=== PATIENT | male | born 1995 | race Two or more races ===

== ENCOUNTER 2025-04-24 10:33 | Inpatient (IN) | payer MEDICAID, SELFPAY ==
[2025-04-24 10:34] VITALS: BMI 31.4
[2025-04-24 10:47] VITALS: BP 132/88; PULSE 74; RESP 17; TEMP 36.6; O2SAT 98
--- NOTE | 2025-04-24 12:36 | PD.EDADULT ---
ED General RME/HPI General Chief complaint: General Adult/Misc Complain Stated complaint: CHRONIC RHABDO CAUSING SEVERE MUSC ACHES Time Seen by Provider: 04/24/25 12:32 Arrival date/time: 04/24/25 10:33 transferease Deficiency type II, followed by [facility] in [place], [place]. [facility]. IV hydration d10. Limitations: no limitations RME / HPI RME / HPI narrative: 30-year-old male who is here today with myalgias and joint pain that started this morning. He states he has a history of recurrent rhabdomyolysis and is followed by sports nutritionist and [place], [place]. His specialist is with [facility]. He has CPTII defeciency. 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 He denies any fevers. He has no nausea or vomiting. Has no dark-colored urine although he states he has decreased urine output. He has no lower leg edema. He has no other acute complaints. Related Data Home Medications ?Medication ?Instructions ?Recorded ?Confirmed No Known Home Medications 04/24/25 04/24/25 Allergies Allergy/AdvReac Type Severity Reaction Status Date / Time No Known Allergies Allergy Verified 04/24/25 10:38 Review of Systems Review of Systems Systems Reviewed: All systems reviewed, normal except as documented ED Exam General Limitations: Present no limitations General appearance: Present alert and in no apparent distress Head Head exam: Present atraumatic Eye Eye exam: Present normal appearance, PERRL and EOMI ENT ENT exam: Present normal exam, normal oropharynx and mucous membranes moist Neck Neck exam: Present normal inspection, full ROM and trachea midline Chest Chest inspection: Present normal inspection and symmetric chest wall rise Respiratory Respiratory exam: Present normal lung sounds bilaterally Cardiovascular Cardiovascular exam: Present regular rate, normal rhythm and normal heart sounds Abdominal Exam Abdominal exam: Present soft; Absent distention, tenderness or guarding Extremities Exam Extremities exam: Present normal inspection and full ROM; Absent tenderness or joint swelling Back Exam Back exam: Present normal inspection and full ROM Neurological Exam Neurological exam: Present alert and oriented X3 Psychiatric Psychiatric exam: Present normal affect and normal mood Skin Skin exam: Present warm, dry, intact and normal color Course Quality Measures none Orders Category Date Time Status COVID-19 Screening Questionnaire NOW Care 04/24/25 13:55 Active COVID-19 Screening Questionnaire NOW Care 04/24/25 14:23 Active Decision to Admit X1 Care 04/24/25 13:55 Completed IV [Insert IV] NOW Care 04/24/25 14:17 Active Diet Regular Diet 04/24/25 Dinner Active CBC Stat Lab 04/24/25 12:50 Completed CK [Creatine Kinase] Stat Lab 04/24/25 12:50 Completed CMP [Comprehensive Metabolic Panel] Stat Lab 04/24/25 12:50 Completed CRP [C-Reactive Protein] Stat Lab 04/24/25 12:50 Completed Lactic Acid [Lactate (Lactic Acid)] Stat Lab 04/24/25 12:50 Completed Lipase Stat Lab 04/24/25 12:50 Completed Sed Rate (ESR) Stat Lab 04/24/25 12:50 Completed UA, C/S IF [Urinalysis, C/S if Indicated] Stat Lab 04/24/25 13:15 Completed HYDROmorphone INJ [Dilaudid Inj] Med 04/24/25 13:48 Discontinued 1 mg IVP X1 ONE Morphine Inj Med 04/24/25 12:38 Discontinued 2 mg IVP X1 ONE Morphine Inj Med 04/24/25 12:42 Discontinued 4 mg IM X1 ONE Ringers Lactated 1000 ml [Lactated Ringers] 1,000 ml Med 04/24/25 12:50 Discontinued IV 999 mls/hr Vital Signs Vital signs: Vital Signs Temperature 97.8 F 04/24/25 10:47 Pulse Rate 74 04/24/25 10:47 Respiratory Rate 17 04/24/25 10:47 Blood Pressure 132/88 H 04/24/25 10:47 Pulse Oximetry (%) 98 04/24/25 10:47 Oxygen Delivery Method Room Air 04/24/25 10:47 Discharge Plan Plan Patient Disposition: Other Care w/in Hosp ([facility]TY) Problem List Clinical Impression: Rhabdomyolysis MDM Narrative MDM hospital course: 30-year-old male who is here today with myalgias and joint pain that started this morning. He states he has a history of recurrent rhabdomyolysis and is followed by sports nutritionist and [place], [place]. His specialist is with [facility]. He has CPTII defeciency. 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 He denies any fevers. He has no nausea or vomiting. Has no dark-colored urine although he states he has decreased urine output. He has no lower leg edema. He has no other acute complaints. On exam, patient is nontoxic-appearing. Vital signs are stable. He has no joint erythema or edema. Workup reveals no leukocytosis or anemia. His creatinine is 0.9, bicarb is 28, potassium 4.1, sodium is 141. His AST is elevated at 61 and ALT is elevated 81. Alk phos is unremarkable. His CRP is unremarkable. His CK is 1289. Clinical Information Provided by patient Medical Records Reviewed None Meds/Rx Considered, not Ordered None Labs/Rad/Tests considered, not Ordered None Chronic Illness/Social Conditions which may negatively complicate care or outcome(s)-explain: other (CPTII defeciency) EKG EKG not done Lab Interpretation Labs: interpreted by ny Lab(s) interpretation(s): CK is elevated indicating rhabdomyolysis Imaging Imaging interpretation: none Medication Administration(s) Medication Administration History Hydrocodone Bitart/Acetaminophen (Hydrocodone/Apap 10/325 Tab) 1 tab PO Q6HR PRN PRN Reason: PAIN SCALE 7-10 (Severe Stop: 04/29/25 20:15 Hydromorphone HCl (Hydromorphone Inj 2 Mg/Ml Vial) 1 mg IVP Q4H PRN; Protocol PRN Reason: breakthrough pain or pain 7-10 Stop: 04/29/25 16:38 Last Admin: 04/24/25 21:29 Dose: 1 mg Documented By: Admin: 04/24/25 17:28 Dose: 1 mg Documented By: COLLEEN Lactated Ringer's (Lactated Ringers) 1,000 mls @ 150 mls/hr IV .Q6H40M DAY Stop: 05/24/25 16:39 Last Admin: 04/24/25 18:45 Dose: 150 mls/hr Documented By: KD Discontinued Medications Hydromorphone HCl (Hydromorphone Inj 2 Mg/Ml Vial) 1 mg IVP X1 ONE Stop: 04/24/25 13:49 Last Admin: 04/24/25 14:22 Dose: 1 mg Documented By: JUAN Lactated Ringer's (Lactated Ringers) 1,000 mls @ 999 mls/hr IV .Q1H1M ONE Stop: 04/24/25 13:50 Last Infusion: 04/24/25 15:40 Dose: Infused Documented By: Admin: 04/24/25 14:23 Dose: 999 mls/hr Documented By: JUAN Morphine Sulfate (Morphine Sulf Inj 10 Mg/Ml Vial) 2 mg IVP X1 ONE Stop: 04/24/25 12:39 Last Admin: 04/24/25 14:23 Dose: Not Given Documented By: COLLEEN Non-Admin Reason: Cancelled by Provider Morphine Sulfate (Morphine Sulf Inj 10 Mg/Ml Vial) 4 mg IM X1 ONE Stop: 04/24/25 12:43 Last Admin: 04/24/25 13:16 Dose: 4 mg Documented By: VALE See above Diagnosis Differential diagnosis: Rhabdomyolysis, kidney failure, myalgias Dispositon Disposition: Admit
[2025-04-24 13:00] LABS: Lactate (Lactic Acid) 0.7 mMol/L (0.4-2.0)
[2025-04-24 13:04] LABS: Basophils # (Auto) 0.0 Thou/mm3 (0.0-0.2); Basophils % (Auto) 0 % (0-2.5); Eosinophils # (Auto) 0.2 Thou/mm3 (0.0-0.5); Eosinophils % (Auto) 2 % (0-10); Hematocrit 41.1 % (41.0-53.0); Hemoglobin 14.8 g/dL (13.5-16.0); Immature Granulocytes Auto 0.02 Thou/mm3 (0.00-0.00); Lymphocytes # (Auto) 2.0 Thou/mm3 (1.0-4.8); Lymphocytes % (Auto) 19 % (10-50); Mean Corpuscular HGB Conc 36.0 g/dl (31.0-37.0); Mean Corpuscular Hemoglobin 30.9 pg (25.0-35.0); Mean Corpuscular Volume 86 fL (80-100); Monocytes # (Auto) 0.6 Thou/mm3 (0.0-0.8); Monocytes % (Auto) 6 % (0-12); Neutrophils # (Auto) 7.7 Thou/mm3 (1.8-7.7); Neutrophils % (Auto) 73 % (37-80); Nucleated Red Blood Cell # 0.00 Thou/mm3 (0.00-0.00); Nucleated Red Blood Cell % 0 /100 WBC (0); Platelet Count 288 Thou/mm3 (140-440); RDW Standard Deviation 40.9 fL (35.1-43.9); Red Blood Count 4.79 Miln/mm3 (4.50-5.90); White Blood Count 10.6 Thou/mm3 (3.8-10.6)
[2025-04-24 13:13] LABS: Sed Rate (ESR) 10 mm/hr (0-15)
[2025-04-24] MEDS: MORPHINE SULF INJ 10 MG/ML VIAL 4 MG IM (13:16)
[2025-04-24 13:18] LABS: Alanine Aminotransferase 81 U/L (10-49); Albumin, Serum 4.8 gm/dL (3.5-5.0); Albumin/Globulin Ratio 1.8 (1.2-2.2); Alkaline Phosphatase 97 U/L (46-116); Anion Gap 8 (7-16); Aspartate Amino Transferase 61 U/L (0-34); BUN/Creatinine Ratio 13 Ratio (12-20); Bilirubin,Total 0.9 mg/dL (0.3-1.2); Blood Urea Nitrogen 12 mg/dL (9-23); C-Reactive Protein < 0.5 mg/dL (0.0-0.9); Calcium 9.6 mg/dL (8.3-10.6); Calcium (Corrected) 9.6 mg/dL (8.5-10.1); Carbon Dioxide 28.0 mMol/L (20.0-31.0); Chloride 105 mMol/L (98-107); Creatine Kinase 1289 U/L (34-171); Creatinine (Component) 0.9 mg/dL (0.6-1.3); Estimated Creatinine Clearance 148.6 mL/min (>60); Globulin 2.6 gm/dL (2.3-3.5); Glucose 93 mg/dL (74-106); Lipase 28 U/L (12-53); Osmolality,Calculated 280 (275-295); Potassium 4.1 mMol/L (3.4-5.1); Sodium 141 mMol/L (136-145); Total Protein 7.4 gm/dL (5.7-8.2); eGFR > 60 See Note
[2025-04-24 13:30] LABS: Collection Type, Urine Voided
[2025-04-24 13:32] LABS: Bilirubin,Urine Negative (Negative); Blood,Urine Negative (Negative); Clarity,Urine Clear (Clear/Hazy); Color,Urine Yellow (Lt Yel-Yel); Culture Indicated,Urine Not Indicated; Glucose, Urine Negative (Negative); Ketones,Urine Negative (Negative); Leukocyte Esterase,Urine Negative (Negative); Nitrite,Urine Negative (Negative); PH,Urine 7.5 (5.0-7.0); Protein,Urine Trace (Neg - Trace); RBC,Urine 2 /hpf (0-3); Specific Gravity,Urine 1.026 (1.001-1.035); Squamous Epithelial Cell,Urine < 1 /hpf (0-5); Urobilinogen,Urine Negative mg/dL (0.0-1.0); WBC,Urine 2 /hpf (0-5)
[2025-04-24 14:19] VITALS: BP 142/82; PULSE 63; RESP 16; TEMP 37.1; O2SAT 99
[2025-04-24] MEDS: HYDROmorphone INJ 2 MG/ML VIAL 1 MG IVP ×3 (14:22→21:29)
[2025-04-24] MEDS: RINGERS LACTATED 1000 ML 1,000 ML 999 ML IV (14:23)
--- NOTE | 2025-04-24 15:09 | ESHP_ITS ---
<Statement entered by Adina Brody MD - 04/25/25 15:13> I have reviewed the note and agree with the resident's assessment & plan with exceptions as below. I have personally reviewed labs, imaging, home meds/prior records, examined the patient, formulated and discussed management plan with the IM team. Kendrick is a 30 y/o male with CPTII deficiency comes in for evaluation of leg pain. Patient has history of recurrent rhabdomyolysis due to his genetic condition of CPT 2 deficiency. He reports that he was working and had overexerted himself and had poor oral intake. He decided to come to the ER for further workup. He says his creatinine kinase has been up to 150,000 when he was first diagnosed. Will continue with IV hydration (LR 150 cc/hr) and trend CK for patient as patient's creatinine kinase is around 1500. No evidence of kidney damage however there is some elevation in liver enzymes indicating acute liver injury. Repeat hematology, chemistry and liver enzymes in the AM. Adina Brody, PGY-2 Internal Medicine Documentation for date of: 04/24/25 HPI History of Present Illness History of present illness: Kendrick Moser is a 30yo male with hx of recurrent rhabdomyolysis, CPT2 deficiency who presented to the ED on 04/24 with muscle and joint pain of BLE and lower back beginnig this morning. Symptoms had been developing with working overnight and pt woke up with severe MSK pain in the morning prompting his ED visit. Pt sees a underwater hunter at [facility] for the dietary management of his condition as well as a rigger up at [facility]. Pt has had similar episodes previously which were accompanied with dark urine at times. Denies any fevers, nausea, vomiting, or dark-colored urine, or leg edema. Admits to decreased urine output. ED Course: Vital signs were stable at presentation. In ED Pt was given bolus 1L LR. IV and IM morphine. IVP Dilaudid 1mg for pain control. Workup revealed no leukocytosis or anemia. His creatinine was 0.9, bicarb is 28, potassium 4.1, sodium is 141. His AST was elevated at 61 and ALT elevated 81. Alk phos was unremarkable. His CRP was unremarkable. His CK was 1289. UA was negative for signs of UTI. Allergies: none PMHx: CPT2 deficiency, and recurrent rhabdomyolysis PSHx: Diagnostic biopsy of muscle in Lt thigh. Previous emergent dialysis portal related to unresolving rhabdo. FHx: Father had unidentified tumor in his leg which was removed. Doesn't know about mother. Siblings are healthy. 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 Admits to vaping nicotine. Denies smoking tobacco products, marijuana use, or any other illicit drug use. Monogamous relationship with and has 3 children (one on the way) Reason for admission: Patient is being observed for symptomatic control while receiving IV fluids and pain relief. Exam Vital Signs Temp Pulse Resp BP Pulse Ox O2 Del Method 98.7 F 63 16 142/82 H 99 Room Air 04/24/25 14:19 04/24/25 14:19 04/24/25 14:19 04/24/25 14:19 04/24/25 14:19 04/24/25 14:19 Narrative Exam General: Alert and oriented x3, No apparent distress. Skin: Intact, Warm, no rashes. HEENT: Normocephalic, Atraumatic. Normal neck range of motion, Supple. Trachea midline. Respiratory: Lungs are clear to auscultation, Breath sounds are equal bilaterally with equal chest expansion. Cardiovascular: RRR, normal S1, S2, No murmurs. Distal pulses 2+ Abdomen: Abdomen soft, non-distended, without erythema, or lesions. Normotensive bowel sounds x4. Percussion tympanic. Palpation nontender in all four quadrants. No organomagely. No guarding or rebound present. Musculoskeletal/Extremities: No erythema, swelling, tenderness of any joints. No edema of BLE. DP pulses +2/3 b/l. Full active ROM of all four extremities. Neurologic: Alert, Oriented, No focal deficits. Moving all 4 extremities spontaneously Psych: Thoughts linear and responses appropriate. Results: Labs 04/25/25 04:49 04/25/25 04:49 Labs: Short CBC 04/24/25 Range/Units 12:50 WBC 10.6 (3.8-10.6) Thou/mm3 Hgb 14.8 (13.5-16.0) g/dL Hct 41.1 (41.0-53.0) % Plt Count 288 (140-440) Thou/mm3 BMP 04/24/25 12:50 Sodium 141 Potassium 4.1 Chloride 105 Carbon Dioxide 28.0 BUN 12 Creatinine 0.9 Glucose 93 Calcium 9.6 Cardiac Enzymes 04/24/25 Range/Units 12:50 Total Creatine Kinase 1289 H (34-171) U/L Liver Function 04/24/25 Range/Units 12:50 Total Bilirubin 0.9 (0.3-1.2) mg/dL AST 61 H (0-34) U/L ALT 81 H (10-49) U/L Alkaline Phosphatase 97 (46-116) U/L Albumin 4.8 (3.5-5.0) gm/dL Urine 04/24/25 Range/Units 13:15 Urine Color Yellow (Lt Yel-Yel) Urine Clarity Clear (Clear/Hazy) Urine pH 7.5 H (5.0-7.0) Ur Specific [place] 1.026 (1.001-1.035) Urine Protein Trace (Neg - Trace) Urine Glucose (UA) Negative (Negative) Quality Measures Quality Measures none Medications Home Medications and Allergies Home Medications ?Medication ?Instructions ?Recorded ?Confirmed ?Type No Known Home Medications 04/24/2504/03 History Allergies Allergy/AdvReac Type Severity Reaction Status Date / Time No Known Allergies Allergy Verified 04/24/25 10:38 Visit Medications Discontinued Medications Hydromorphone HCl (Hydromorphone Inj 2 Mg/Ml Vial) 1 mg IVP X1 ONE Stop: 04/24/25 13:49 Last Admin: 04/24/25 14:22 Dose: 1 mg Lactated Ringer's (Lactated Ringers) 1,000 mls @ 999 mls/hr IV .Q1H1M ONE Stop: 04/24/25 13:50 Last Admin: 04/24/25 14:23 Dose: 999 mls/hr Morphine Sulfate (Morphine Sulf Inj 10 Mg/Ml Vial) 2 mg IVP X1 ONE Stop: 04/24/25 12:39 Last Admin: 04/24/25 14:23 Dose: Not Given Morphine Sulfate (Morphine Sulf Inj 10 Mg/Ml Vial) 4 mg IM X1 ONE Stop: 04/24/25 12:43 Last Admin: 04/24/25 13:16 Dose: 4 mg Assessment & Plan Plan Assessment Kendrick Moser is a 30yo male with hx of recurrent rhabdomyolysis, CPT2 deficiency who presented to the ED on 04/24 with muscle and joint pain beginning in AM of same day. #Rhabdomyolysis 2/2 #CPT2 Deficiency Workup reveals no leukocytosis or anemia. His creatinine is 0.9, bicarb is 28, potassium 4.1, sodium is 141. His AST is elevated at 61 and ALT is elevated 81. Alk phos is unremarkable. His CRP is unremarkable. His CK is 1289. UA was negative for signs of UTI. In ED Pt was given bolus 1L LR. IV and IM morphine. IVP Dilaudid 1mg. Plan: LR @ IV 150mL/h Dilaudid IV 1mg Q4h PRN CK AM draw #Elevated transaminases AST ALT 61 and 81 respectively Could be related to rhabdo and perfusion Plan: ? Trend CMP ? Avoid hepatotoxic agents Health Maintenance: Disposition: Observation Diet: Routine PPx DVT: PPx GI: Code status: full This case was discussed with my attending physician, Dr. Henriquez, and senior resident Dr Brody. Beverly Snider DO PGY I Attending Provider Attestation/Addendum After examination of the patient and review of the clinical data I feel that this patient needs admission to the hospital for further treatment/evaluation. I have discussed and was present for the essential components of the history, physical examination, diagnosis, and treatment plan with the resident. I agree with the patient's care as documented by the resident and amended herein by me. Patrick Henriquez DO. Although this document has been carefully reviewed, there may still be some phonetic and other typographical errors. These errors are purely grammatical due to imperfections in the software program and should not be construed in any way to compromise the substance of the patient's medical care during this visit. Patient seen and evaluated in the ED the patient is a 30-year-old male with significant past medical history of Carnitine palmitoyltransferase II deficiency and frequent episodes of rhabdomyolysis secondary to CPK 2 deficiency, presented to the ED for myalgias and joint pain as well as reduced urine output. Patient subsequently admitted for rhabdomyolysis. In the ED, vital signs stable, patient afebrile, labs largely unremarkable with exception of a CK level of 1289. Patient was given 1 L of LR in the ED. Patient subsequently admitted to observation under MedSurg for very mild rhabdomyolysis. Patient was started on fluids, initially LR however transition to D5 NS at a rate of 150 mL/h considering the case is mild the patient is stable, may have to transition to a D10 solution if the patient worsens to reverse catabolism and stop any muscle breakdown. The patient is doing well, not in any acute distress however we will continue to monitor closely.
[2025-04-24 15:38] VITALS: BP 125/87; PULSE 72; RESP 16; TEMP 36.3; O2SAT 99
[2025-04-24 18:40] VITALS: BP 135/90; PULSE 70; RESP 16; TEMP 36.1; O2SAT 99
[2025-04-24] MEDS: RINGERS LACTATED 1000 ML 1,000 ML 150 ML IV (18:45)
[2025-04-24 19:16] VITALS: BMI 32.2
[2025-04-24 20:00] VITALS: BP 127/86; PULSE 71; RESP 19; TEMP 36.1; O2SAT 98
--- NOTE | 2025-04-24 20:00 | PC.NURSE ---
Pt asked this RN if his pain meds can be given as early as every 3 hrs DT his pain is not holding for 4 hrs as per PRN pain meds, MD Kemp made aware, per will check on pts chart and bring it to his senior team. Pt made aware.
[2025-04-25] VITALS: BP 142/79; PULSE 80; RESP 18; TEMP 36.1; O2SAT 99
[2025-04-25] MEDS: DEXTROSE 5%-NS 1,000 ML 150 ML IV ×2 (00:15→06:25)
[2025-04-25] MEDS: HYDROmorphone INJ 2 MG/ML VIAL 1 MG IVP ×6 (01:30→21:39)
[2025-04-25 04:00] VITALS: BP 122/91; PULSE 60; RESP 17; TEMP 36.2; O2SAT 98
[2025-04-25 06:08] LABS: Creatine Kinase 3612 U/L (34-171)
[2025-04-25 08:00] VITALS: BP 108/64; PULSE 68; RESP 17; TEMP 36.1; O2SAT 97
[2025-04-25 08:04] LABS: Basophils # (Auto) 0.0 Thou/mm3 (0.0-0.2); Basophils % (Auto) 1 % (0-2.5); Eosinophils # (Auto) 0.3 Thou/mm3 (0.0-0.5); Eosinophils % (Auto) 5 % (0-10); Hematocrit 38.2 % (41.0-53.0); Hemoglobin 13.2 g/dL (13.5-16.0); Immature Granulocytes Auto 0.02 Thou/mm3 (0.00-0.00); Lymphocytes # (Auto) 2.1 Thou/mm3 (1.0-4.8); Lymphocytes % (Auto) 36 % (10-50); Mean Corpuscular HGB Conc 34.6 g/dl (31.0-37.0); Mean Corpuscular Hemoglobin 31.3 pg (25.0-35.0); Mean Corpuscular Volume 91 fL (80-100); Monocytes # (Auto) 0.5 Thou/mm3 (0.0-0.8); Monocytes % (Auto) 9 % (0-12); Neutrophils # (Auto) 3.0 Thou/mm3 (1.8-7.7); Neutrophils % (Auto) 50 % (37-80); Nucleated Red Blood Cell # 0.00 Thou/mm3 (0.00-0.00); Nucleated Red Blood Cell % 0 /100 WBC (0); Platelet Count 216 Thou/mm3 (140-440); RDW Standard Deviation 44.2 fL (35.1-43.9); Red Blood Count 4.22 Miln/mm3 (4.50-5.90); White Blood Count 6.0 Thou/mm3 (3.8-10.6)
[2025-04-25 08:24] LABS: Alanine Aminotransferase 82 U/L (10-49); Albumin, Serum 3.8 gm/dL (3.5-5.0); Albumin/Globulin Ratio 2.0 (1.2-2.2); Alkaline Phosphatase 78 U/L (46-116); Anion Gap 6 (7-16); Aspartate Amino Transferase 127 U/L (0-34); BUN/Creatinine Ratio 13 Ratio (12-20); Bilirubin,Total 0.8 mg/dL (0.3-1.2); Blood Urea Nitrogen 12 mg/dL (9-23); Calcium 8.5 mg/dL (8.3-10.6); Calcium (Corrected) 8.7 mg/dL (8.5-10.1); Carbon Dioxide 30.3 mMol/L (20.0-31.0); Chloride 106 mMol/L (98-107); Creatinine (Component) 0.9 mg/dL (0.6-1.3); Estimated Creatinine Clearance 148.0 mL/min (>60); Globulin 1.9 gm/dL (2.3-3.5); Glucose 100 mg/dL (74-106); Magnesium 1.5 mg/dL (1.6-2.6); Osmolality,Calculated 282 (275-295); Potassium 4.9 mMol/L (3.4-5.1); Sodium 142 mMol/L (136-145); Total Protein 5.7 gm/dL (5.7-8.2); eGFR > 60 See Note
[2025-04-25] MEDS: DEXTROSE 10% IV ×2 (09:43→22:31)
[2025-04-25] MEDS: WATER IV ×2 (09:43→22:31)
[2025-04-25] MEDS: SODIUM CHLOR ADDITIVE IV ×2 (09:43→22:31)
[2025-04-25] MEDS: Magnesium Sulfate 4 GM Ivpb 4 GM/50 ML BAG IV (09:44)
[2025-04-25 12:00] VITALS: BP 135/82; PULSE 64; RESP 18; TEMP 36.2; O2SAT 97
--- NOTE | 2025-04-25 13:38 | PC.SS ---
Patient is alert/oriented. He was able to verify demographics. Patient was admitted for rhabdomyolysis. Patient is here for work. He will return to [place] once he is done with his job. Patient is independent with ADL's. No DME. Patient states he has a PCP with [facility], Dr. Isaac Winter. Patient has also been seen by a tea bag machine tender, Dr. Sims, in [place]. Pharmacy: [facility]. Alt medical decision maker is his , Yvonne Moser. Discharge plan will be to return home. Alt medical decision maker: , Yvonne Moser, d/c Plan: home transportation:
--- NOTE | 2025-04-25 15:31 | ESPR_ITS ---
<Statement entered by Young Peña MD - 04/25/25 20:33> In summary: 30-year-old male with PMHx of CPT 2 deficiency, admitted for rhabdomyolysis. Continued on IVF's. CK improving. Renal function intact. I?ve reviewed the note and agree with the resident's assessment and plan, with the exceptions outlined above. I personally went over the labs, imaging, home medications, and prior records, and examined the patient. The case was also reviewed with the attending physician. Please note: this document was transcribed using voice recognition technology; minor inaccuracies may be present. Young Peña DO PGY II Documentation for date of: 04/25/25 Subjective Subjective Interval history: Patient was seen and examined at bedside. No acute events took place overnight. Reports 5/10 pain in bilateral lower extremities and lower back which is improved from yesterday. Denies fevers or dark urine. Patient states that he typically takes couple days for his symptoms to get better after a flare. Pain has been managed by Dilaudid IV 1 mg every 4 hours overnight. Exam Vital Signs Temp Pulse Resp BP Pulse Ox O2 Del Method 97.1 F 64 18 135/82 H 97 Room Air 04/25/25 12:00 04/25/25 12:00 04/25/25 12:00 04/25/25 12:00 04/25/25 12:00 04/25/25 12:00 Narrative Exam General: Alert and oriented x3, No apparent distress. Skin: Intact, Warm, no rashes. HEENT: Normocephalic, Atraumatic. Normal neck range of motion, Supple. Trachea midline. Respiratory: Lungs are clear to auscultation, Breath sounds are equal bilaterally with equal chest expansion. Cardiovascular: RRR, normal S1, S2, No murmurs. Distal pulses 2+ Abdomen: Abdomen soft, non-distended, without erythema, or lesions. Normotensive bowel sounds x4. Percussion tympanic. Palpation nontender in all four quadrants. No organomagely. No guarding or rebound present. Musculoskeletal/Extremities: No erythema, swelling, tenderness of any joints. No edema of BLE. DP pulses +2/3 b/l. Full active ROM of all four extremities. Neurologic: Alert, Oriented, No focal deficits. Moving all 4 extremities spontaneously Psych: Thoughts linear and responses appropriate. Objective Labs 04/25/25 04:49 04/25/25 04:49 Labs: Laboratory Results - last 24 hr 04/25/25 04:49 WBC 6.0 D RBC 4.22 L Hgb 13.2 L Hct 38.2 L MCV 91 MCH 31.3 MCHC 34.6 RDW Std Deviation 44.2 H Plt Count 216 D Neut % (Auto) 50 Lymph % (Auto) 36 [place] % (Auto) 9 Eos % (Auto) 5 Baso % (Auto) 1 Neut # (Auto) 3.0 Lymph # (Auto) 2.1 [place] # (Auto) 0.5 Eos # (Auto) 0.3 Baso # (Auto) 0.0 Immature Gran # (Auto) 0.02 H Absolute Nucleated RBC 0.00 Immature Gran % 0 Nucleated RBC % 0 Sodium 142 Potassium 4.9 D Chloride 106 Carbon Dioxide 30.3 Anion Gap 6 L BUN 12 Creatinine 0.9 Estim Creat Clear Calc 148.0 eGFR > 60 BUN/Creatinine Ratio 13 Glucose 100 Calculated Osmolality 282 Calcium 8.5 Corrected Calcium 8.7 Magnesium 1.5 L Total Bilirubin 0.8 AST 127 H ALT 82 H Alkaline Phosphatase 78 Total Creatine Kinase 3612 H D Total Protein 5.7 Albumin 3.8 D Globulin 1.9 L Albumin/Globulin Ratio 2.0 Quality Measures Quality Measures none Assessment & Plan Assessment Current Active Medications: Generic Name Dose Route Start Last Admin Trade Name Freq PRN Reason Stop Dose Admin Hydrocodone Bitart/Acetaminophen 1 tab 04/24/25 20:16 Hydrocodone/Apap 10/325 Tab PO 04/29/25 20:15 Q6HR PRN PAIN SCALE 7-10 (Severe Hydromorphone HCl 1 mg 04/24/25 16:39 04/25/25 13:37 Hydromorphone Inj 2 Mg/Ml Vial IVP 04/29/25 16:38 1 mg Q4H PRN Administration breakthrough pain or pain 7-10 Protocol Sodium Chloride 154 meq/ 1,000 mls @ 125 mls/hr 04/25/25 15:12 04/25/25 15:29 Dextrose IV 05/25/25 15:10 Not Given .Q8H DAY Plan Kendrick Moser is a 30yo male with hx of recurrent rhabdomyolysis, CPT2 deficiency who presented to the ED on 04/24 with muscle and joint pain beginning in AM of same day. #Rhabdomyolysis #CPT2 Deficiency On 04/15, Labs did not reveal evidence of CARLA with Cr 0.9 and BUN 12. Electrolytes WNL. UA was negative for signs of UTI. CK 1289, 3612 (04/15) Patient cannot hydrolyze fatty acids fully due to genetic deficiency of an enzyme, and byproducts accumulate to toxic cellular levels. Diet of high carbs and low fat is recommended. IV infusion is switched to dextrose 10% for larger carbohydrate integration with follow-up blood sugar checks every 6 hours. Plan: D5W 125mL/h bedside blood glc checks Q6h Dilaudid IV 1mg Q4h PRN CK AM draw #Elevated transaminases AST ALT 127 and 82 respectively Could be related to rhabdo and perfusion Plan: ? Trend CMP ? Avoid hepatotoxic agents Health Maintenance: Disposition: Observation Diet: Routine PPx DVT: PPx GI: Code status: full This case was discussed with my attending physician, Dr. Henriquez, and senior resident Dr Brody. Beverly Snider DO PGY I Attending Provider Attestation/Addendum HIDA scan I have discussed and was present for the essential components of the history, physical examination, diagnosis, and treatment plan with the resident. I agree with the patient's care as documented by the resident and amended herein by me. Patrick Henriquez DO. Although this document has been carefully reviewed, there may still be some phonetic and other typographical errors. These errors are purely grammatical due to imperfections in the software program and should not be construed in any way to compromise the substance of the patient's medical care during this visit. Patient seen and evaluated this AM. No acute events overnight, vital signs stable, patient afebrile, CK was 3612 this morning, did downtrend to approximately 1300 this afternoon. Patient was switched from D5-D10 NS drip this morning at 100 mL/h, we did upped the rate to 125 mL/h this afternoon. Patient subjectively feels fine, if he continues to improve and CK continues to downtrend, possible discharge tomorrow 04/26. As noted previously, the patient does have CPT 2 deficiency which is an essential enzyme in the mitochondrial beta oxidation of long chain fatty acids leading to impaired energy production especially during fasting or stress which can cause rhabdomyolysis (which the patient has had several times). Providing sugars in the D10 drip suppresses lipolysis providing energy via glycolysis and the héctor cycle, reducing the influx of longchain fatty acids into the mitochondria and reducing toxic fatty acyl intermediates which can damage cells and lead to the rhabdomyolysis. Will continue to monitor closely while he is here
[2025-04-25 16:00] VITALS: BP 118/74; PULSE 70; RESP 17; TEMP 36.7; O2SAT 98
[2025-04-25 16:51] LABS: Creatine Kinase > 1300 U/L (34-171)
[2025-04-25 20:00] VITALS: BP 123/84; PULSE 58; TEMP 36.4; O2SAT 94
--- NOTE | 2025-04-25 23:54 | PC.NURSE ---
Pt refused blood sugar checked, he said it's not necessary, explained to the pt that we are checking to make sure that he's sugar is not low but pts get irritated, he said no I dont want it . MD Kemp made aware. Pt complaints of nausea, will put order in.
[2025-04-25] MEDS: ONDANSETRON INJ 2 MG/ML INJ 2 ML 4 MG IVP (23:59)
[2025-04-26] VITALS: BP 108/66; PULSE 56; TEMP 37.1; O2SAT 97
[2025-04-26] MEDS: HYDROmorphone INJ 2 MG/ML VIAL 1 MG IVP ×3 (01:39→09:55)
[2025-04-26 04:00] VITALS: BP 117/77; PULSE 72; RESP 16; TEMP 36.4; O2SAT 96
[2025-04-26] MEDS: WATER IV (05:40)
[2025-04-26] MEDS: DEXTROSE 10% IV (05:40)
[2025-04-26] MEDS: SODIUM CHLOR ADDITIVE IV (05:40)
[2025-04-26] MEDS: ONDANSETRON INJ 2 MG/ML INJ 2 ML 4 MG IVP (05:52)
[2025-04-26 06:18] LABS: Basophils # (Auto) 0.0 Thou/mm3 (0.0-0.2); Basophils % (Auto) 1 % (0-2.5); Eosinophils # (Auto) 0.2 Thou/mm3 (0.0-0.5); Eosinophils % (Auto) 3 % (0-10); Hematocrit 41.5 % (41.0-53.0); Hemoglobin 13.7 g/dL (13.5-16.0); Immature Granulocytes Auto 0.01 Thou/mm3 (0.00-0.00); Lymphocytes # (Auto) 1.6 Thou/mm3 (1.0-4.8); Lymphocytes % (Auto) 26 % (10-50); Mean Corpuscular HGB Conc 33.0 g/dl (31.0-37.0); Mean Corpuscular Hemoglobin 30.4 pg (25.0-35.0); Mean Corpuscular Volume 92 fL (80-100); Monocytes # (Auto) 0.4 Thou/mm3 (0.0-0.8); Monocytes % (Auto) 7 % (0-12); Neutrophils # (Auto) 3.9 Thou/mm3 (1.8-7.7); Neutrophils % (Auto) 64 % (37-80); Nucleated Red Blood Cell # 0.00 Thou/mm3 (0.00-0.00); Nucleated Red Blood Cell % 0 /100 WBC (0); Platelet Count 248 Thou/mm3 (140-440); RDW Standard Deviation 44.4 fL (35.1-43.9); Red Blood Count 4.51 Miln/mm3 (4.50-5.90); White Blood Count 6.1 Thou/mm3 (3.8-10.6)
[2025-04-26 06:45] LABS: Alanine Aminotransferase 85 U/L (10-49); Albumin, Serum 4.2 gm/dL (3.5-5.0); Albumin/Globulin Ratio 1.8 (1.2-2.2); Alkaline Phosphatase 80 U/L (46-116); Anion Gap 11 (7-16); Aspartate Amino Transferase 114 U/L (0-34); BUN/Creatinine Ratio 9 Ratio (12-20); Bilirubin,Total 1.1 mg/dL (0.3-1.2); Blood Urea Nitrogen 7 mg/dL (9-23); Calcium 8.9 mg/dL (8.3-10.6); Calcium (Corrected) 8.9 mg/dL (8.5-10.1); Carbon Dioxide 27.2 mMol/L (20.0-31.0); Chloride 104 mMol/L (98-107); Creatinine (Component) 0.8 mg/dL (0.6-1.3); Estimated Creatinine Clearance 166.5 mL/min (>60); Globulin 2.4 gm/dL (2.3-3.5); Glucose 103 mg/dL (74-106); Magnesium 1.8 mg/dL (1.6-2.6); Osmolality,Calculated 281 (275-295); Phosphorous 3.1 mg/dL (2.4-5.1); Potassium 4.0 mMol/L (3.4-5.1); Sodium 142 mMol/L (136-145); Total Protein 6.6 gm/dL (5.7-8.2); eGFR > 60 See Note
[2025-04-26 07:06] LABS: Creatine Kinase 2609 U/L (34-171)
[2025-04-26 08:00] VITALS: BP 136/73; PULSE 55; RESP 18; TEMP 36.1; O2SAT 99
[2025-04-26 12:00] VITALS: BP 144/92; PULSE 71; RESP 18; TEMP 36.2; O2SAT 100
--- NOTE | 2025-04-26 12:20 | PC.NURSE ---
Hospitalist team rounding on patient, discharge instructions verbalized to pt
--- NOTE | 2025-04-26 15:27 | ESDS_ITS ---
<Statement entered by Young Peña MD - 04/26/25 17:28> Kendrick Moser, a 30M with PMH of recurrent rhabdomyolysis and CPT 2 deficiency, presented to the ED on 04/24/2025 with muscle and joint pain in bilateral lower extremities and lower back, starting the same morning. 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 Patient was admitted for inpatient management of rhabdomyolysis symptoms. Notable labs included elevated CK (1289), AST (127), and ALT (82); other blood markers and electrolytes were WNL. Treatment included IV hydration with LR, transitioned to D10-NS. Pain was managed with IV Dilaudid as needed. CK initially elevated at 1289, increased to 3612 the next day, and declined to 2609 by hospital day 2. Symptoms improved during hospitalization. At discharge, patient was medically stable and cleared to return to previous living situation. I?ve reviewed the note and agree with the resident's assessment and plan, with the exceptions outlined above. I personally went over the labs, imaging, home medications, and prior records, and examined the patient. The case was also reviewed with the attending physician. Please note: this document was transcribed using voice recognition technology; minor inaccuracies may be present. Young Peña DO PGY II Planned Discharge Date 04/26/25 DS: Providers Provider Date of admission: 04/25/25 07:53 Primary care physician: Physician Pack Primary/Family Admitting Provider: César Henriquez DO Attending Provider on Admission: César Henriquez DO Attending Provider on DC: César Henriquez DO Discharging Provider: César Henriquez DO DS: Diagnosis Problem List Completed Was Problem List Reviewed/Reconciled?: Yes Hospital Course Hospital Course Hospital course: Kendrick Moser is a 30-year-old male with PMH of recurrent rhabdomyolysis, CPT 2 deficiency who presented to the ED on 04/24/2025 with muscle and joint pain in bilateral lower extremities and lower back beginning in the morning of same day. 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 He was admitted for inpatient management of his symptoms from rhabdomyolysis. At the time of presentation notable lab values included CK elevated at 1289, AST 127, ALT 82. The remainder of his blood markers and electrolytes were within normal limits. Treatment consisted of IV hydration with LR 150 cc/h transitioned to D10-NS at 225 cc/h. Pain was controlled with IV Dilaudid 1 mg every 4 hour as needed. At the time of presentation CK elevated at 1289, which went up to 3612 the following day, and declined to 2609 on hospital day 2. Patient's symptoms improved over the course of his hospital. At the point of discharge, Patient is medically stable and safe to return to his previous state of living. Admission diagnoses: #Rhabdomyolysis #CPT 2 deficiency #Elevated transaminases Discharge instructions: Follow up with your Primary Care Physician within one week Take your pain medicine as needed as prescribed Return to Emergency Department if your symptoms worsen or return Encouraging oral hydration and avoiding strenuous exercise This case was discussed with my attending physician, Dr. Henriquez, and senior resident Casey. Beverly Snider, PGY I Time Spent with Patient Time attestation: Total time spent providing and/or coordinating discharge services: Time spent: Greater than 30 minutes Exam Vital Signs Temp Pulse Resp BP Pulse Ox O2 Del Method 97.1 F 71 18 144/92 H 100 Room Air 04/26/25 12:00 04/26/25 12:00 04/26/25 12:00 04/26/25 12:00 04/26/25 12:00 04/26/25 08:00 Discharge Plan Plan Patient Disposition: HOME (Self Care) Patient condition on transfer: Stable Care Plan Goals: Discharge Instructions: Follow up with your Primary Care Physician within one week Take your pain medicine as needed as prescribed Return to Emergency Department if your symptoms worsen or return Encouraging oral hydration and avoiding strenuous exercise Prescriptions/Referrals Prescriptions/Med Rec: New oxycodone-acetaminophen [Percocet] 5-325 mg tablet 1 tab PO Q6H MDD 4 tablets in one day PRN (Reason: pain 7-10, or breakthrough pain) 3 Days Qty: 12 0RF Rx Instructions: Take one tablet by mouth up to four times a day for severe pain Referrals: No Primary/Family,Physician [Primary Care Provider] - Patient/Caregiver Discharge Instructions Discharge Activity: activity as tolerated Education Materials: Rhabdomyolysis, ED Rhabdomyolysis Print Language: Slovenian Stand Alone Forms: [employer] Award Info., Patient Portal Info Letter, Work/Release Restrictions Discharge Order Discharge Orders: Discharge (Routine); Ordered 04/26/25 Ordered By: Young Peña Quality Discharge Quality Measures none MD Attestestation MD Attestation I have discussed and was present for the essential components of the discharge history, physical examination, diagnosis, and discharge treatment plan with the resident. I agree with the patient's discharge care as documented by the resident and amended herein by me. Patrick Henriquez, DO. The patient understood all discharge instructions, all questions were answered satisfactorily. The patient was instructed to return to the Emergency Department is symptoms worsened or persisted. Patient was stable, afebrile, ambulatory and tolerating p.o. intake at time of discharge. Patient's creatin ine kinase Nace had started to downtrend and his muscle pain were significantly improved as compared to admission. Optimally I would have preferred to keep the patient another day for continued monitoring however the patient was adamant to leave as he had a baby shower to attend. He was instructed to return to the emergency department if he started feeling myalgias yet again. All questions were answered, patient stable for discharge home. Although this document has been carefully reviewed, there may still be some phonetic and other typographical errors. These errors are purely grammatical due to imperfections in the software program and should not be construed in any way to compromise the substance of the patient's medical care during this visit.
== END 2025-04-26 13:35 | disposition home or self-care (01) | DRG 351 ==
LOC: SERX 13:55 → S3SX 04-25 06:19 → SERHOLD 04-25 06:19
PROVIDERS: Admitting Provider Student in an Organized Health Care Education/Training Program; Emergency Provider Physician Assistant Medical; Visit Provider Student in an Organized Health Care Education/Training Program
DX: M62.82 Rhabdomyolysis (principal); F17.290 Nicotine dependence, other tobacco product, uncomplicated; R74.01 Elevation of levels of liver transaminase levels
CPT/HCPCS: 36415; 80053; 81001; 82550; 83605; 83690; 83735; 84100; 85025; 85652; 86140; 96361; 96374; 96376; 99284; G0378; J1171; J2270; J2405; J3475; J7042; J7120; J7131